=== PATIENT | female | born 1965 | race American Indian/Alaskan Native ===

== ENCOUNTER 2016-08-27 13:14 | Outpatient (CLI) | payer OTHER ==
--- NOTE | 2016-08-28 16:35 | Ultrasound Report ---
TRANSVAGINAL AND TRANSABDOMINAL PELVIC ULTRASOUND: FINDINGS: The uterus is enlarged measuring 12.0 x 4.9 x 6.2 cm. There are 3 heterogeneous masses within the uterus, the largest of which is arising from the superior fundus measuring 4.1 x 4.8 cm. A complex endocervical cyst measuring 1.3 cm in diameter is also noted. The endometrial thickness is 4 mm. The right ovary is normal. There are 2 follicular cysts within the left ovary measuring 1.2 cm in diameter each. A small volume of fluid is seen within the cul-de-sac. IMPRESSION: Multiple uterine fibroids. 2 small follicular cysts are seen within the left ovary. Minimal free fluid is noted within the cul-de-sac.
== END 2016-08-27 13:15 | disposition home or self-care (01) ==
LOC: SPVWC 13:14
PROVIDERS: ATTEND Family Medicine
DX: D25.9 Leiomyoma of uterus, unspecified (principal); N83.202 Unspecified ovarian cyst, left side; N88.8 Other specified noninflammatory disorders of cervix uteri; R10.2 Pelvic and perineal pain
CPT/HCPCS: 76830; 76856

== ENCOUNTER 2016-09-22 06:02 | Day surgery (SDC) | payer OTHER ==
[2016-09-22] MEDS ORDERED: NACL 0.9% 500 ML 500 ML IV SCH (07:00)
[2016-09-22 07:08] LABS: Basophils % (Auto) 1.9 % (0.0-1.8); Eosinophils % (Auto) 2.1 % (0.0-4.3); Hematocrit 38.6 % (30.3-42.9); Hemoglobin 12.4 gm/dl (10.1-14.3); Mean Corpuscular HGB Conc 32 % (30-34); Mean Corpuscular Hemoglobin 32 pg (28-32); Mean Corpuscular Volume 100 fl (79-97); Platelet Count 334 K/mm3 (140-440); Red Blood Count 3.87 M/mm3 (3.65-5.03); Red Cell Distribution Width 14.6 % (13.2-15.2); White Blood Count 7.8 K/mm3 (4.5-11.0)
[2016-09-22 07:22] LABS: INR 0.94 (0.87-1.13)
[2016-09-22 08:03] LABS: Anion Gap 17 mmol/L; BUN/Creatinine Ratio 21.66; Blood Urea Nitrogen 13 mg/dL (7-17); Calcium 8.8 mg/dL (8.4-10.2); Carbon Dioxide 25 mmol/L (22-30); Chloride 101.8 mmol/L (98-107); Glucose 106 mg/dL (65-100); Sodium 140 mmol/L (137-145)
[2016-09-22] MEDS ORDERED: HEPARIN/NS 5000 UNIT/500ML(CATH LAB) 1,000 ML IR ONE (09:44)
[2016-09-22] MEDS ORDERED: NITROGLYCERIN SYRINGE 3 ML ONE ×2 (09:45→09:52)
[2016-09-22] MEDS ORDERED: HEPARIN 10,000 UNITS/10 ML ONE (09:45)
[2016-09-22] MEDS ORDERED: CALAN ONE (09:49)
[2016-09-22] MEDS: XYLOCAINE 2% INFILTRATI ONE ×2 (09:59→10:23)
[2016-09-22] MEDS: CALAN ONE ×2 (09:59→10:28)
[2016-09-22] MEDS: VERSED ONE ×3 (09:59→10:34)
[2016-09-22] MEDS: SUBLIMAZE ONE ×3 (10:00→10:34)
--- NOTE | 2016-09-22 11:15 | Discharge Summary ---
Short Stay Discharge Plan Activity: advance as tolerated Weight Bearing Status: Full Weight Bearing Diet: low fat, low cholesterol, low salt Wound: keep clean and dry Special Instructions: no heavy lifting (3 days) Follow up with: YAZAN MEDRANO MD [Primary Care Provider] - 7 Days ESTEFANY GARRETT MD [Staff Physician] - 7 Days
[2016-09-22] MEDS ORDERED: NACL 0.9% 1000 ML 1,000 ML IV SCH (12:00)
--- NOTE | 2016-09-22 12:27 | Cardiac Catherization Report ---
CARDIAC CATHETERIZATION REASON FOR PROCEDURE: The patient is a 51-year-old woman with persistent chest pain despite a negative noninvasive thallium stress test. She was recommended for cardiac catheterization. PROCEDURE: The patient was prepped and draped in a sterile fashion after informed consent. The right radial artery was entered using the Seldinger technique followed by placement of a 5-[place] hydrophilic sheath. Routine radial cocktail was administered via the sheath. A #3.5 left Colton catheter was used for left coronary angiography. A #4 right Colton was used for right coronary angiography. A pigtail catheter was used for left ventricle angiography. The catheters were removed, sheaths removed, and hemostasis achieved using manual compression. The patient was returned to the postprocedure unit in stable condition. There were no complications. FINDINGS: HEMODYNAMICS: Left ventricle end diastolic pressure was 15, following coronary angiography. Ascending aortic pressure was 122/76. There was no significant pressure gradient on pullback across the aortic valve. CORONARY ANGIOGRAPHY: The left main coronary artery was angiographically normal. The left anterior descending artery and its diagonal branches were angiographically normal. The circumflex artery and its obtuse marginal branches were angiographically normal. The right coronary artery was dominant and similarly angiographically normal. There was normal left ventricular systolic function, ejection fraction 60%. CONCLUSION: 1. Angiographically normal coronary arteries. 2. Normal left ventricular systolic function, ejection fraction 60%. RECOMMENDATION: Risk factor modification and medical therapy. JOB# [id number] CA/NTS
[2016-09-22 13:41] VITALS: BP 107/53
== END 2016-09-22 14:41 | disposition home or self-care (01) ==
LOC: OPU 06:02
PROVIDERS: ATTEND Internal Medicine Cardiovascular Disease
DX: R07.89 Other chest pain (principal); I10 Essential (primary) hypertension; F12.90 Cannabis use, unspecified, uncomplicated; Z72.89 Other problems related to lifestyle; Z87.891 Personal history of nicotine dependence; Z82.49 Family history of ischemic heart disease and other diseases of the circulatory system
CPT/HCPCS: 36415; 80048; 85025; 85610; 85730; 93005; 93010; 93458; C1894; J1644; J2250; J3010; J7040; Q9967

== ENCOUNTER 2017-09-28 12:57 | Outpatient (CLI) | payer OTHER ==
--- NOTE | 2017-09-29 08:28 | Ultrasound Report ---
RENAL ULTRASOUND: 09/28/17 CLINICAL: Hematuria and hypertension. FINDINGS: High resolution ultrasound demonstrated normal nondilated renal collecting systems and ureters. Mild increased echogenicity of the kidneys producing prominence of the renal pyramids. No renal mass, cyst or calculus. The right kidney measures 10.3 x 4.8 x 5.0-cm. The renal parenchyma measures 1.9-cm in thickness. The left kidney measures 11.2 x 5.6 x 4.5-cm. The renal parenchyma measures 2.1-cm in thickness. Normally distended and normal urinary bladder. IMPRESSION: Normal-sized kidneys with mild increased echogenicity suggesting possible medical renal disease. No mass, cyst or calculus.
--- NOTE | 2017-09-29 08:33 | Ultrasound Report ---
TRANSABDOMINAL AND TRANSVAGINAL PELVIC ULTRASOUND: 09/28/17 12:57:00 CLINICAL: Fibroids and pelvic pain. FINDINGS: Transabdominal and transvaginal pelvic ultrasound demonstrated a mildly enlarged fibroid uterus measuring 11.7 x 4.4 x 7.8 cm. The overall uterine echo pattern is heterogeneous suggesting numerous small fibroids. A dominant posterior fundal subserosal fibroid measures 4.1 x 4.1 x 4.0 cm. A second posterior fundal subserosal fibroid measures 1.2 x 1.7 x 1.1 cm.The endometrium is normal and measures 4 mm AP thickness. Normal right ovary. The right ovary measures 2.1 x 1.6 x 1.8cm. No left ovary is imaged. No adnexal mass. No free fluid. Normal urinary bladder. IMPRESSION: 1. Uterine leiomyomata with a dominant 4.1 cm posterior fundal subserosal fibroid. 2. Normal endometrium. 3. Normal right ovary and no left ovary identified.
--- NOTE | 2017-09-29 15:50 | Mammography Report ---
BILATERAL DIGITAL SCREENING MAMMOGRAM with CAD: 09/28/17 12:57:00 CLINICAL: Routine screening. COMPARISON:09/05/15 bilateral mammogram FINDINGS: The breasts are heterogeneously dense, which may obscure small masses. Right asymmetries require additional imaging.No architectural distortion or suspicious calcifications.Left retroareolar biopsy clip and negative left breast. IMPRESSION: Right asymmetries requiring further workup. BI-RADS CATEGORY: 0 -- Additional Imaging Evaluation Required RECOMMENDATION: Recall for right exaggerated CC , spot compression CC and MLO views and right breast ultrasound if needed. ACR BI-RADS MAMMOGRAPHIC CODES: 0 = Needs additional imaging evaluation; 1 = Negative; 2 = Benign; 3 = Probably benign; 4 = Suspicious; 5 = Malignant; 6 = Known biopsy-proven malignancy COMMENT: 1. Dense breast tissue, i.e., adenosis, fibrocystic changes, etc., may obscure an underlying neoplasm. 2. Approximately 10% of cancers are not detected with mammography. 3. A negative mammography report should not delay biopsy if a clinically suspicious mass is present. COMMENT: Patient follow-up letters are generated via our [employer] application.
== END 2017-09-28 12:58 | disposition home or self-care (01) ==
LOC: SPVWC 12:57
PROVIDERS: ATTEND Family Medicine
DX: Z12.31 Encounter for screening mammogram for malignant neoplasm of breast (principal); D25.2 Subserosal leiomyoma of uterus; N85.2 Hypertrophy of uterus; R31.9 Hematuria, unspecified; I10 Essential (primary) hypertension; N32.89 Other specified disorders of bladder
CPT/HCPCS: 76770; 76830; 76856; 77067

== ENCOUNTER 2017-12-28 12:07 | Outpatient (CLI) | payer OTHER ==
--- NOTE | 2017-12-28 15:30 | Cat Scan Report ---
FINAL REPORT EXAM: CT ABDOMEN PELVIS WO CON HISTORY: HEMATURIA/PROTEINURIA COMPARISON: None. TECHNIQUE: Multiple contiguous axial images were obtained from the lung bases to the pubic symphysis without administration of IV contrast. Reformatted sagittal and coronal images were available for review. FINDINGS: Lung bases: Normal. Visualized heart and mediastinum: Normal noncontrast appearance. Liver: Normal noncontrast appearance. Spleen: Normal noncontrast appearance. Pancreas: Normal noncontrast appearance. Gallbladder and Biliary Tree: No calcified gallstones. No biliary ductal dilatation. Adrenal glands: Normal. Kidneys: Nonobstructive 2 millimeter calcification in the superior pole of the right kidney. No hydronephrosis. Bladder: Normal. Pelvic organs: Large calcified fibroid within the fundus of the uterus. Bowel: No focal wall thickening. No evidence of obstruction. The appendix is normal in caliber without surrounding inflammatory change. There is diverticulosis of the sigmoid colon without evidence of diverticulitis. Peritoneum: No significant mesenteric adenopathy. No free air or Diverticulosis of the sigmoid colon without evidence of diverticulitis. Free fluid. Vasculature: Abdominal aorta is normal in caliber without evidence of aneurysm. Normal noncontrast appearance of the portal venous system and the inferior vena cava. Bones and soft tissues: No suspicious osseous lesions. No acute fracture or dislocation. The soft tissues are normal. IMPRESSION: No acute intra-abdominal pathology. 2 millimeter nonobstructive calculus in the superior pole of the right kidney. No hydronephrosis. Large calcified fibroid within the fundus of the uterus.
== END 2017-12-28 12:08 | disposition home or self-care (01) ==
LOC: CT 12:07
PROVIDERS: ATTEND Family Medicine
DX: R31.9 Hematuria, unspecified (principal); R80.9 Proteinuria, unspecified; N20.0 Calculus of kidney; D25.9 Leiomyoma of uterus, unspecified; K57.30 Diverticulosis of large intestine without perforation or abscess without bleeding; I10 Essential (primary) hypertension; K21.9 Gastro-esophageal reflux disease without esophagitis; F10.20 Alcohol dependence, uncomplicated; Z87.891 Personal history of nicotine dependence; Z98.890 Other specified postprocedural states
CPT/HCPCS: 74176

== ENCOUNTER 2018-11-08 10:32 | Outpatient (CLI) | payer OTHER ==
--- NOTE | 2018-11-08 13:03 | Mammography Report ---
BILATERAL DIGITAL SCREENING MAMMOGRAM with CAD: 11/08/18 10:32:00 CLINICAL: Routine screening. COMPARISON:09/28/17 and 09/05/15 FINDINGS: The breasts are heterogeneously dense, which may obscure small masses. Left retroareolar biopsy clip. A left inner asymmetry on the CC view requires additional imaging.No architectural distortion or suspicious calcifications.The right breast is negative. IMPRESSION: Left asymmetry requiring further workup. BI-RADS CATEGORY: 0 -- Additional Imaging Evaluation Required RECOMMENDATION: Recall for left lateralmedial, rolled CC and , spot compression views and left breast ultrasound if needed. ACR BI-RADS MAMMOGRAPHIC CODES: 0 = Needs additional imaging evaluation; 1 = Negative; 2 = Benign; 3 = Probably benign; 4 = Suspicious; 5 = Malignant; 6 = Known biopsy-proven malignancy COMMENT: 1. Dense breast tissue, i.e., adenosis, fibrocystic changes, etc., may obscure an underlying neoplasm. 2. Approximately 10% of cancers are not detected with mammography. 3. A negative mammography report should not delay biopsy if a clinically suspicious mass is present. COMMENT: Patient follow-up letters are generated via our [employer] application.
== END 2018-11-08 10:33 | disposition home or self-care (01) ==
LOC: SPVWC 10:32
PROVIDERS: ATTEND Family Medicine
DX: Z12.31 Encounter for screening mammogram for malignant neoplasm of breast (principal); I10 Essential (primary) hypertension; K21.9 Gastro-esophageal reflux disease without esophagitis
CPT/HCPCS: 77067

== ENCOUNTER 2018-12-27 11:10 | Outpatient (CLI) | payer OTHER ==
--- NOTE | 2018-12-28 09:14 | Mammography Report ---
LEFT DIGITAL DIAGNOSTIC MAMMOGRAM : 12/27/18 11:10:00 CLINICAL: Recalled for asymmetry. COMPARISON:11/08/18 screening FINDINGS: Additional left mammographic views were performed and are negative. IMPRESSION: No mammographic evidence of malignancy. BI-RADS CATEGORY: 1 -- Negative RECOMMENDATION: Routine mammographic screening in one year. COMMENT: 1. Dense breast tissue, i.e., adenosis, fibrocystic changes, etc., may obscure an underlying neoplasm. 2. Approximately 10% of cancers are not detected with mammography. 3. A negative mammography report should not delay biopsy if a clinically suspicious mass is present. COMMENT: Patient follow-up letters are generated via our [employer] application.
== END 2018-12-27 11:11 | disposition home or self-care (01) ==
LOC: SPVWC 11:10
PROVIDERS: ATTEND Family Medicine
DX: R92.8 Other abnormal and inconclusive findings on diagnostic imaging of breast (principal); I10 Essential (primary) hypertension; K21.9 Gastro-esophageal reflux disease without esophagitis

== ENCOUNTER 2019-12-28 09:28 | Outpatient (CLI) | payer OTHER ==
--- NOTE | 2019-12-28 13:32 | Mammography Report ---
DIGITAL SCREENING MAMMOGRAM WITH CAD, 12/28/2019 INDICATION: Routine screening mammography. TECHNIQUE: Digital bilateral 2D mammography was obtained in the craniocaudal and mediolateral obliq ue projections. This examination was interpreted with the benefit of Computer-Aided Detection analysi s. COMPARISON: 11/08/2018 FINDINGS: Breast Density: The breasts are heterogeneously dense, which may obscure small masses. There is no evidence of dominant mass, suspicious calcifications or architectural distortion in eithe r breast. IMPRESSION: No mammographic evidence of malignancy. Follow up recommendation: Routine yearly BI-RADS Category 1: Negative. A "normal" or negative report should not discourage follow up or biopsy of a clinically significant f inding. A written summary of these findings will be mailed to the patient. The patient will be entered into a mammography reporting system which will generate a reminder letter for the patient's next appointmen t at the appropriate interval. The [employer] recommends yearly mammograms starting at age 40 and continuing as l geetha as a woman is in good health. Breast MRI is recommended for women with an approximate 20-25% or greater lifetime risk of breast cancer, including women with a strong family history of breast or ova brie cancer or who have been treated for Hodgkin's disease. Signer Name: Samm Guy MD Signed: 12/28/2019 1:28 PM Workstation Name: [id number]
== END 2019-12-28 09:29 | disposition home or self-care (01) ==
LOC: SPVWC 09:28
PROVIDERS: ATTEND Family Medicine
DX: Z12.31 Encounter for screening mammogram for malignant neoplasm of breast (principal)
CPT/HCPCS: 77067

== ENCOUNTER 2021-04-17 14:40 | Outpatient (CLI) | payer OTHER ==
--- NOTE | 2021-04-17 18:21 | Mammography Report ---
DIGITAL SCREENING MAMMOGRAM WITH CAD, 04/17/2021 CLINICAL INFORMATION / INDICATION: Routine screening mammography. TECHNIQUE: Digital bilateral 2D mammography was obtained in the craniocaudal and mediolateral obliqu e projections. This examination was interpreted with the benefit of Computer-Aided Detection analysis . COMPARISON: 11/08/2018 FINDINGS: Breast Density: There are scattered areas of fibroglandular density. No dominant mass, suspicious calcifications, or architectural distortion in either breast. Left breast biopsy clip. Overall, no interval change. IMPRESSION: No mammographic evidence of malignancy. Follow up recommendation: Routine yearly BI-RADS Category 2: Benign. A "normal" or negative report should not discourage follow up or biopsy of a clinically significant f inding. A written summary of these findings will be mailed to the patient. The patient will be entered into a mammography reporting system which will generate a reminder letter for the patient's next appointmen t at the appropriate interval. The [employer] recommends yearly mammograms starting at age 40 and continuing as l geetha as a woman is in good health. Breast MRI is recommended for women with an approximate 20-25% or greater lifetime risk of breast cancer, including women with a strong family history of breast or ova brie cancer or who have been treated for Hodgkin's disease. Signer Name: Elen Willingham MD Signed: 04/17/2021 6:17 PM Workstation Name: [id number]
== END 2021-04-17 14:41 | disposition home or self-care (01) ==
LOC: SPVWC 14:40
PROVIDERS: ATTEND Family Medicine
DX: Z12.31 Encounter for screening mammogram for malignant neoplasm of breast (principal); N64.89 Other specified disorders of breast
CPT/HCPCS: 77067